=== PATIENT | female | born 1940 | race Caucasian/White ===

== ENCOUNTER 2017-03-22 02:13 | Inpatient (IN) | payer MEDICARE, OTHER ==
[~2017-03-22] VITALS: Ht 152.4 cm; Wt 35.1 kg
[2017-03-22] MEDS ORDERED: PRAVASTATIN SOD20 MG PO (10:00)
[2017-03-22] MEDS ORDERED: LISINOPRIL10 MG PO (10:00)
[2017-03-22] MEDS ORDERED: COREG 3.125M3.125 MG PO (10:01)
[2017-03-22] MEDS ORDERED: FLONASE 0.05% N16 GM (10:01)
[2017-03-22] MEDS ORDERED: COMBIVENT RESPIM4 GM INH (10:02)
[2017-03-22] MEDS ORDERED: SINGULAIR10 MG PO (10:03)
[2017-03-22] MEDS ORDERED: ALPRAZOLAM0.5 MG PO (10:03)
[2017-03-22] MEDS ORDERED: NEURONTIN 300300 MG PO (10:03)
[2017-03-22] MEDS ORDERED: NORCO 10-325 T1 EACH PO (10:04)
[2017-03-22] MEDS ORDERED: NORVASC 5 MG TAB5 MG PO (10:04)
[2017-03-22] MEDS ORDERED: ASPIRIN81 MG PO (10:05)
[2017-03-22] MEDS ORDERED: FOSAMAX70 MG PO (10:05)
[2017-03-22 16:29] LABS: HEMOGLOBIN 13.4 gm/dl (12.3-15.3); RED BLOOD COUNT 4.67 M/UL (4.00-5.10); WHITE BLOOD COUNT 12.8 K/UL (4.5-11.0)
[2017-03-22 16:47] LABS: BUN/CREATININE RATIO 32 (0-10)
[2017-03-23 05:38] LABS: HEMOGLOBIN 12.4 gm/dl (12.3-15.3); RED BLOOD COUNT 4.41 M/UL (4.00-5.10)
[2017-03-23 05:46] LABS: WHITE BLOOD COUNT 9.5 K/UL (4.5-11.0)
[2017-03-23 05:54] LABS: BUN/CREATININE RATIO 13 (0-10)
[2017-03-24 06:17] LABS: RED BLOOD COUNT 4.14 M/UL (4.00-5.10); WHITE BLOOD COUNT 8.8 K/UL (4.5-11.0)
[2017-03-24 06:20] LABS: BUN/CREATININE RATIO 22 (0-10)
[2017-03-25 04:46] LABS: HEMOGLOBIN 11.2 gm/dl (12.3-15.3); RED BLOOD COUNT 3.92 M/UL (4.00-5.10); WHITE BLOOD COUNT 7.7 K/UL (4.5-11.0)
[2017-03-25 05:05] LABS: BUN/CREATININE RATIO 23 (0-10)
[2017-03-26 04:14] LABS: HEMOGLOBIN 11.1 gm/dl (12.3-15.3); RED BLOOD COUNT 3.92 M/UL (4.00-5.10); WHITE BLOOD COUNT 7.3 K/UL (4.5-11.0)
[2017-03-26 04:31] LABS: BUN/CREATININE RATIO 25 (0-10)
[2017-03-27] MEDS ORDERED: MEGACE400 MG/10 PO (16:17)
[2017-03-27] MEDS ORDERED: COLACE 100MG C100 MG PO (16:17)
[2017-03-27] MEDS ORDERED: HABITROL 21 MG P1 EA TD (16:19)
[2017-03-27] MEDS ORDERED: MULTIVITAMINS1 EAC1 PO (16:19)
== END 2017-03-27 20:32 | disposition home or self-care (01) | DRG 481 ==
LOC: M/S 02:13
PROVIDERS: Hospitalist; Internal Medicine; Orthopaedic Surgery; ADMIT Internal Medicine
PROC: 0QS704Z Reposition Left Upper Femur with Internal Fixation Device, Open Approach (ICD-10-PCS; principal; 2017-03-23 14:44)
DX: S72.012A Unspecified intracapsular fracture of left femur, initial encounter for closed fracture (principal); I47.1 Supraventricular tachycardia; E44.0 Moderate protein-calorie malnutrition; Z68.1 Body mass index [BMI] 19.9 or less, adult; M16.12 Unilateral primary osteoarthritis, left hip; J44.9 Chronic obstructive pulmonary disease, unspecified; Z99.81 Dependence on supplemental oxygen; F17.210 Nicotine dependence, cigarettes, uncomplicated; I10 Essential (primary) hypertension; K21.9 Gastro-esophageal reflux disease without esophagitis; M41.9 Scoliosis, unspecified; W18.39XA Other fall on same level, initial encounter; Y93.01 Activity, walking, marching and hiking; Y92.009 Unspecified place in unspecified non-institutional (private) residence as the place of occurrence of the external cause; Z82.49 Family history of ischemic heart disease and other diseases of the circulatory system; Z80.9 Family history of malignant neoplasm, unspecified; Z82.3 Family history of stroke; Z79.82 Long term (current) use of aspirin; Z79.891 Long term (current) use of opiate analgesic; Z79.899 Other long term (current) drug therapy; Z88.1 Allergy status to other antibiotic agents
CPT/HCPCS: ECHO; 36415; 71010; 73502; 73700; 76000; 80048; 80053; 83735; 84132; 85027; 85610; 93005; 93306; 94640; 97110; 97116; 97530; 97535; C1713; C1769; J0690; J1650; J2270; J2405; J7030; J7120